=== PATIENT | female | born 1950 | race Caucasian/White ===

== ENCOUNTER 2016-02-19 22:01 | Emergency (ER) | payer MEDICARE, BC, OTHER ==
[~2016-02-19] VITALS: Ht 154.9 cm; Wt 71.9 kg
[2016-02-19 22:08] VITALS: BP 142/72; PULSE 109; RESP 18; TEMP 99.6; O2SAT 95
--- NOTE | 2016-02-19 22:32 | PD ---
HPI Chief Complaint: fever Time Seen by Provider: 22:18 Travel History International Travel<30 days: No Contact w/Intl Traveler<30days: No Traveled to known affect area: No History of Present Illness HPI The patient is a 66-year-old female that [facility] because of a fever. She states the fevers been going on for days. She went to an urgent care center , was diagnosed as a urinary tract infection and they gave her Microfurantoin 100 mg 4 times daily. She started this antibiotic at 4 PM yesterday and so far is taken 6 tablets. [facility] because she still has a fever. Her fever is low-grade, here it is 99.6. She denies any pain anywhere. Specifically, she denies any flank pain, sore throat, ear pain, chest pain, abdominal pain, nausea, vomiting or diarrhea. She does have a history of diabetes which is controlled by metformin, 850 mg 3 times a day. PFSH Social History Tobacco Use: No Allergies-Medications (Allergen,Severity, Reaction): Coded Allergies: No Known Allergies (Unverified , 02/19/16) Review of Systems Except as stated in HPI: all other systems reviewed are Neg Physical Exam Narrative GENERAL: The patient is alert, oriented 3 in no apparent distress. Her vital signs show heart rate of 109, temperature 99.6 but are otherwise normal. SKIN: Warm and dry. No skin rash is seen. HEAD: Atraumatic. Normocephalic. EYES: Pupils equal and round. No scleral icterus. No injection or drainage. ENT: No nasal bleeding or discharge. Mucous membranes pink and moist. The throat is clear and the tympanic membranes are clear. NECK: Trachea midline. No JVD. CARDIOVASCULAR: Regular rate and rhythm. No murmur appreciated. RESPIRATORY: No accessory muscle use. Clear to auscultation. Breath sounds equal bilaterally. GASTROINTESTINAL: Abdomen soft, non-tender, nondistended. Hepatic and splenic margins not palpable. No guarding or rebound is present. MUSCULOSKELETAL: No obvious deformities. No clubbing. No cyanosis. No edema. NEUROLOGICAL: Awake and alert. No obvious cranial nerve deficits. Motor grossly within normal limits. Normal speech. PSYCHIATRIC: Appropriate mood and affect; insight and judgment normal. Data Data Last Documented VS Vital Signs Date Time Temp Pulse Resp B/P Pulse Ox O2 Delivery O2 Flow Rate FiO2 02/19/16 22:31 90 18 100 Room Air 02/19/16 22:08 99.6 142/72 Orders Complete Blood Count With Diff (02/19/16 22:25) Basic Metabolic Panel (Bmp) (02/19/16 22:25) Urinalysis - C+S If Indicated (02/19/16 22:25) Lidocaine 1% Inj (50 Ml) (Xylocaine 1% I (02/19/16 23:30) Ceftriaxone Inj (Rocephin Inj) (02/19/16 23:30) Urine Culture (02/19/16 22:40) Labs Laboratory Tests Test 02/19/16 02/19/16 22:40 22:48 Urine Collection Type VOIDED Urine Color YELLOW Urine Turbidity SLIGHT Urine pH 5.5 Urine Specific [place] 1.024 Urine Protein 30 mg/dL Urine Glucose (UA) NEG mg/dL Urine Ketones 80 OR GREATER mg/dL Urine Occult Blood MOD Urine Nitrite NEG Urine Bilirubin NEG Urine Leukocyte Esterase MOD Urine WBC 25-49 /hpf Urine WBC Clumps FEW Urine Squamous Epithelial 6-8 /hpf Cells Urine Bacteria FEW /hpf Urine Mucus FEW /lpf Microscopic Urinalysis Comment CULTURE INDICATED White Blood Count 16.5 TH/MM3 Red Blood Count 4.07 MIL/MM3 Hemoglobin 11.8 GM/DL Hematocrit 34.7 % Mean Corpuscular Volume 85.2 FL Mean Corpuscular Hemoglobin 29.0 PG Mean Corpuscular Hemoglobin 34.0 % Concent Red Cell Distribution Width 12.8 % Platelet Count 211 TH/MM3 Mean Platelet Volume 8.6 FL Neutrophils (%) (Auto) 85.8 % Lymphocytes (%) (Auto) 4.9 % Monocytes (%) (Auto) 8.0 % Eosinophils (%) (Auto) 0.6 % Basophils (%) (Auto) 0.7 % Neutrophils # (Auto) 14.2 TH/MM3 Lymphocytes # (Auto) 0.8 TH/MM3 Monocytes # (Auto) 1.3 TH/MM3 Eosinophils # (Auto) 0.1 TH/MM3 Basophils # (Auto) 0.1 TH/MM3 CBC Comment DIFF FINAL Differential Comment Sodium Level 130 MEQ/L Potassium Level 3.6 MEQ/L Chloride Level 93 MEQ/L Carbon Dioxide Level 24.1 MEQ/L Anion Gap 13 MEQ/L Blood Urea Nitrogen 15 MG/DL Creatinine 0.68 MG/DL Estimat Glomerular Filtration 86 ML/MIN Rate Random Glucose 224 MG/DL Calcium Level 8.7 MG/DL MDM Medical Decision Making Medical Screen Exam Complete: Yes Emergency Medical Condition: Yes Medical Record Reviewed: Yes Interpretation(s) The CBC shows a white count of 16,500 with 86% neutrophils but is otherwise unremarkable. The basic metabolic profile shows a sodium of 1:30, GFR of 86 and glucose 224 but is otherwise normal. The urine shows 80 or greater ketones , moderate occult blood, moderate leukocyte Estrace, 25-49 white cells with few white cell clumping's and few bacteria and culture is indicated. Differential Diagnosis Cystitis, pyelonephritis, viral syndrome, intestinal infection, pneumonia unlikely Narrative Course The patient appears to have pyelonephritis. She is given a shot of Rocephin and given Macrobid twice daily for 10 days. It is felt that the antibiotic has not had time to work. The patient will be put on a twice daily antibiotic and is given a shot of Rocephin. She should increase her liquid intake. She should follow-up with her primary care physician next week. Diagnosis Primary Impression: Pyelonephritis Additional Instructions: This anabiotic is taken one tablet twice daily for 10 days. You should increase the liquid intake to establish a good urine flow through your kidneys. Follow-up next week with your primary care physician. Do not expect a fever to resolve until about 4 days today. Med/Other Pt SpecificInfo: Prescription(s) given Scripts Nitrofurantoin Monohydrate Macrocrystals (Macrobid)100 Mg Spb437 Mg PO BID 10 Days Ref 0 Prov:Emile Gómez MD 02/19/16 Disposition: 01 DISCHARGE HOME Condition: Stable Emile Gómez MD Feb 19, 2016 22:32
[2016-02-19 23:03] LABS: AUTOMATED NEUTROPHIL # 14.2 TH/MM3 (1.8-7.7); BASOPHIL # 0.1 TH/MM3 (0-0.2); BASOPHIL % 0.7 % (0.0-2.0); EOSINOPHIL # 0.1 TH/MM3 (0-0.4); EOSINOPHIL % 0.6 % (0.0-4.0); HEMATOCRIT 34.7 % (35.0-46.0); LYMPH % 4.9 % (9.0-44.0); LYMPHOCYTE # 0.8 TH/MM3 (1.0-4.8); MEAN CELL VOLUME 85.2 FL (80.0-100.0); NEUT % 85.8 % (16.0-70.0); PLATELET COUNT 211 TH/MM3 (150-450); RED BLOOD COUNT 4.07 MIL/MM3 (4.00-5.30); RED CELL DISTRIBUTION WIDTH 12.8 % (11.6-17.2); WHITE BLOOD COUNT 16.5 TH/MM3 (4.0-11.0)
[2016-02-19 23:06] LABS: GLUCOSE,URINE NEG (NEG); NITRITE,URINE NEG (NEG); PH, URINE 5.5 (5.0-8.5)
[2016-02-19 23:07] LABS: BLOOD, URINE MOD (NEG); KETONE, URINE 80 OR GREATER mg/dL (NEG)
[2016-02-19 23:08] LABS: HEMO FLAGS DIFF FINAL
[2016-02-19 23:10] LABS: POTASSIUM 3.6 MEQ/L (3.5-5.1)
[2016-02-19 23:13] LABS: BICARBONATE 24.1 MEQ/L (21.0-32.0)
[2016-02-19 23:27] LABS: METHOD OF COLLECTION VOIDED; URINE COLOR YELLOW (YELLW/STRAW)
[2016-02-19 23:30] LABS: MUCUS URINE FEW /lpf (OCC)
[2016-02-19] MEDS ORDERED: cefTRIAXone INJ 1,000 MG in SODIUM CHLORIDE 0.9% INJ 100 ML IV ONE (23:30)
[2016-02-19] MEDS ORDERED: LIDOCAINE HCL 1% 50 ML VIAL IM ONE (23:30)
[2016-02-19 23:36] LABS: BACTERIA, URINE FEW /hpf; COMMENT (UR) CULTURE INDICATED; CULTURE IF INDICATED CULTURE INDICATED
[2016-02-19] MEDS ORDERED: MACR100C2 PO (23:48)
[2016-02-20 00:21] VITALS: BP 140/72; PULSE 85; RESP 18; O2SAT 100
== END 2016-02-20 00:22 | disposition home or self-care (01) ==
LOC: PHED 22:01
DX: N12 Tubulo-interstitial nephritis, not specified as acute or chronic (principal); E11.9 Type 2 diabetes mellitus without complications; N39.0 Urinary tract infection, site not specified; Z79.84 Long term (current) use of oral hypoglycemic drugs
CPT/HCPCS: 80048; 81001; 85025; 87086; 96372; 99283; J0696